=== PATIENT | female | born 1955 | race Caucasian/White ===

== ENCOUNTER 2017-04-06 12:02 | Outpatient (CLI) ==
--- NOTE | 2017-04-06 13:41 | DI ---
EXAM: Two-view chest HISTORY: Dyspnea TECHNIQUE: Frontal and lateral views of the chest were obtained. FINDINGS: The heart is normal size. Lungs are clear. The pulmonary vasculature appears normal. Th e osseous structures and mediastinal contours are normal. IMPRESSION: No active cardiopulmonary disease.
== END 2017-04-06 12:03 | disposition home or self-care (01) ==
LOC: LAB 12:02
PROVIDERS: ATTEND Physician Assistant
DX: R06.00 Dyspnea, unspecified (principal)
CPT/HCPCS: 36415; 83880

== ENCOUNTER 2018-05-17 13:27 | Outpatient (CLI) ==
--- NOTE | 2018-05-18 10:18 | MAMMO ---
EXAM: Bilateral digital screening mammogram (2-D and 3-D) Comparison: None available. Findings: MLO and CC views of bilateral breasts demonstrate scattered fibroglandular breast parenchy ma. CAD was reviewed by the radiologist. Tomosynthesis was performed. Within the lower inner quadr ant of the right breast there is a focal asymmetry. No suspicious microcalcifications. Impression: Indeterminate asymmetry within the lower inner quadrant of the left breast. Recommend f urther evaluation with spot compression views with tomosynthesis and ultrasound. BIRADS 0
== END 2018-05-17 13:28 | disposition home or self-care (01) ==
LOC: RAD 13:27
PROVIDERS: ATTEND Physician Assistant
DX: Z12.31 Encounter for screening mammogram for malignant neoplasm of breast (principal)